=== PATIENT | female | born 1975 | race Caucasian/White ===

== ENCOUNTER 2020-08-20 15:29 | Emergency (ER) | payer OTHER, SELFPAY ==
[2020-08-20 15:59] VITALS: BP 155/90; PULSE 73; RESP 18; TEMP 36.4; O2SAT 100
--- NOTE | 2020-08-20 17:34 | PC.NURSE ---
Patient comes to intake desk and reports that she is going to leave the ED and does not wish to be seen in the ED at this time. Patient left the ED at this time.
== END 2020-08-20 15:59 | disposition left against medical advice (07) ==
PROVIDERS: PCP Internal Medicine Gastroenterology
DX: Z53.21 Procedure and treatment not carried out due to patient leaving prior to being seen by health care provider (principal)
CPT/HCPCS: 99199

== ENCOUNTER 2022-09-02 18:45 | Emergency (ER) | payer OTHER, SELFPAY ==
[2022-09-02 18:53] VITALS: BP 145/68; PULSE 100; RESP 16; TEMP 36.4; O2SAT 100
--- NOTE | 2022-09-02 19:20 | ED.URI ---
HPI - URI/Sore Throat General Chief Complaint: Upper Respiratory Infection Stated Complaint: cold sx Source: patient and RN notes reviewed History of Present Illness HPI Narrative: 47-year-old female presents to urgent care with complaints congestion, sore throat, popping in her left ear, and cough. Patient states her cough is worse at nighttime. Patient states the symptoms have been going on for 2 weeks and getting worse. Denies any fevers, chills, vomiting, chest pain, shortness of breath. Patient has been taking [id number] cold and flu medications with minimal relief. Some parts of this dictation were generated by voice recognition software and may contain typographical and/or grammatical inaccuracies. Related Data Home Medications Medication Instructions Recorded Confirmed baclofen 10 mg tablet mg 09/02/22 hydrocodone 10 mg-acetaminophen tablet 09/02/22 325 mg tablet naproxen 500 mg tablet mg 09/02/22 Allergies Allergy/AdvReac Type Severity Reaction Status Date / Time No Known Allergies Allergy Unknown Verified 09/02/22 18:50 Review of Systems Review of Systems: CONSTITUTIONAL: Denies fever, chills, or sweats. EYES: Denies visual changes, redness, or discharge. ENT: Reports popping in her left ear, congestion, and sore throat CARDIOVASCULAR: Denies chest pain, palpitations, or edema. RESPIRATORY: reports cough. GASTROINTESTINAL: Denies abdominal pain, nausea, vomiting, or diarrhea. GENITOURINARY: Denies dysuria or hematuria. SKIN: Denies rash or itching. MUSCULOSKELETAL: Denies back pain, joint pain, or myalgia. NEUROLOGIC: Denies headache, numbness, or weakness. PMFSH Social History Social History Gender identity (if verbalized by the patient): Female Comments At the time of my signature, I reviewed and agree with the nursing past medical, surgical, social, and family history. There is no relevant family history pertinent to the patient complaint. Exam Narrative: GENERAL: This is a well-nourished, well-developed patient, in no apparent distress. HEAD: normocephalic, atraumatic. EYES: PERRL. Sclera clear/white. Vision is grossly intact. EARS: External ears normal, auditory canals clear and without drainage, TMs normal without perforation. Hearing grossly intact. NOSE: congestion. Edematous nares bilaterally. THROAT: Mucous membranes moist, posterior pharynx Erythemic. no exudate noted. NECK: Neck supple, non-tender. Mild lymphadenopathy. CARDIOVASCULAR: Regular rate and rhythm without murmurs, gallops, or rubs. RESPIRATORY: Clear to auscultation. Breath sounds equal bilaterally. No wheezes, rales, or rhonchi. GASTROINTESTINAL: Abdomen soft, non-tender, nondistended. Bowel sounds are active. No hepato-splenomegaly, or palpable masses. No guarding. SKIN: warm, intact with no suspicious lesions or rash, good texture and turgor. NEURO: awake, alert, and oriented to person, place and time. There were no obvious focal neurologic abnormalities. Course Course Level of Care: Express Care Visit Vital Signs Vital signs: Vital Signs Temperature 97.5 F L 09/02/22 18:53 Pulse Rate 100 09/02/22 18:53 Respiratory Rate 16 09/02/22 18:53 Blood Pressure 145/68 H 09/02/22 18:53 Pulse Oximetry 100 09/02/22 18:53 Oxygen Delivery Room Air 09/02/22 18:53 Temperature 97.5 F L 09/02/22 18:53 Pulse Rate 100 09/02/22 18:53 Respiratory Rate 16 09/02/22 18:53 Blood Pressure 145/68 H 09/02/22 18:53 Pulse Oximetry 100 09/02/22 18:53 Oxygen Delivery Room Air 09/02/22 18:53 reviewed MDM - URI/Sore Throat MDM Narrative Medical decision making narrative: Return to urgent care or go to the ER for new or worsening symptoms. Avoid smoking/second-hand smoke. Continue to take Tylenol or Motrin for pain. Increase your Vitamin C intake. Use a humidifier or vaporizer at night. Take Medications as prescribed. Drink plenty of water. 8-10 glasses per day.
== END 2022-09-02 19:25 | disposition home or self-care (01) ==
PROVIDERS: Emergency Provider Nurse Practitioner Family; PCP Internal Medicine Gastroenterology
DX: J40 Bronchitis, not specified as acute or chronic (principal); J32.9 Chronic sinusitis, unspecified; J02.9 Acute pharyngitis, unspecified
CPT/HCPCS: 87081; 87880; 99213; G0463

== ENCOUNTER 2023-08-31 18:45 | Emergency (ER) | payer OTHER, SELFPAY ==
--- NOTE | ~2023-08-31 | XR_ITS ---
EXAMINATION: [id number] DATE: 08/31/2023 19:03 INDICATION: Right knee pain. TECHNIQUE: 2 views of right knee were obtained. COMPARISON: None. FINDINGS: Bone alignment is normal. No fracture. There is mild tricompartmental osteoarthritis. There is a moderate-sized knee joint effusion. IMPRESSION: 1. Mild right knee osteoarthritis. 2. Moderate-sized knee joint effusion. Reviewed, dictated and finalized at location [facility]
--- NOTE | 2023-08-31 18:51 | PC.NURSE ---
Pt requesting an MRI. Informed pt ER provider will assess pt. MRI are not typically ordred in ER due to insurances. Pt states has an appointment with ortho on 09/06/23
[2023-08-31 18:55] VITALS: BP 126/90; PULSE 84; RESP 18; TEMP 36.1; O2SAT 97
[2023-08-31] MEDS: traMADol HCL (*CRX) 50 MG TABLET PO (22:24)
[2023-08-31] MEDS: methylPREDNISolone SOD SUCC 125 MG VIAL IM (22:25)
[2023-08-31] MEDS: KETOROLAC (*BKC) 60 MG/2 ML VIAL IM (22:25)
--- NOTE | 2023-08-31 22:32 | ED.LOWEXIN ---
HPI - Extremity Injury (Lower) General Chief Complaint: Extremity Injury, Lower Stated Complaint: right knee pain Time Seen by Provider: 08/31/23 21:11 Source: patient Mode of arrival: ambulatory Limitations: no limitations History of Present Illness HPI Narrative: patient is a 48-year-old female who presents the ED with report of right knee pain. Patient reports chronic pain in bilateral knees, for which she receives steroid injections every 3 months with an outpatient sales operations specialist. She states a few days ago she was getting out of her car when her right knee popped and twisted. She has had worsening pain and mild swelling since then. She is able to ambulate, but has pain with this. She has been taking Tylenol and ibuprofen with minimal relief. Denies calf pain or swelling, numbness, redness or warmth around the knee, fevers. Related Data Home Medications Medication Instructions Recorded Confirmed baclofen 10 mg tablet mg 09/02/22 hydrocodone 10 mg-acetaminophen tablet 09/02/22 325 mg tablet naproxen 500 mg tablet mg 09/02/22 Allergies Allergy/AdvReac Type Severity Reaction Status Date / Time No Known Allergies Allergy Unknown Verified 08/31/23 18:46 Review of Systems Review of Systems: CONSTITUTIONAL: Denies fever, chills, or sweats. MUSCULOSKELETAL: See HPI NEUROLOGIC: Denies numbness, or weakness. All systems reviewed & are unremarkable except as noted in HPI and below PMFSH Social History Social History Gender identity (if verbalized by the patient): Female Exam Narrative: GENERAL: Well appearing, Obese with BMI of 37.8, non-toxic, in mild acute distress due to pain. HEAD: Normocephalic, atraumatic. RESPIRATORY: Airway patent, respirations nonlabored. CARDIOVASCULAR: Regular rate and rhythm. Pedal pulses 2+. MUSCULOSKELETAL: Moves all extremities. No gross deformities. limited range of motion of right knee flexion and extension due to pain. Tenderness to palpation diffusely throughout right knee joint spaces. Mild swelling noted to anterior knee. No warmth or erythema. Sensation intact. No lower extremity pain or swelling. No calf tenderness. SKIN: Warm, dry, normal color. NEURO: A&O X3. Speech clear. Cranial nerves II-XII grossly intact. No ataxic movements. PSYCHIATRIC: Appropriate mood and affect. Normal interaction. Course Vital Signs Vital signs: Vital Signs Temperature 97.0 F L 08/31/23 18:55 Pulse Rate 84 08/31/23 18:55 Respiratory Rate 18 08/31/23 18:55 Blood Pressure 126/90 08/31/23 18:55 Pulse Oximetry 97 08/31/23 18:55 Oxygen Delivery Room Air 08/31/23 18:55 Temperature 97.0 F L 08/31/23 18:55 Pulse Rate 84 08/31/23 18:55 Respiratory Rate 18 08/31/23 18:55 Blood Pressure 126/90 08/31/23 18:55 Pulse Oximetry 97 08/31/23 18:55 Oxygen Delivery Room Air 08/31/23 18:55 MDM - Extremity Injury (Lower) MDM Narrative Medical decision making narrative: Patient presents to ED with several day history of right knee pain, after pops/twisting from getting out of car several days ago. Patient's injury is consistent with musculoskeletal etiology. No signs of neurologic or vascular compromise on physical examination. Compartments are soft without signs of compartment syndrome. XR showing moderate size right knee joint effusion, no osseous abnormality, does show osteoarthritis, which patient was aware of. Pain is consistent with exam and injury. Discussed possibility of ligamentous or meniscal injury. Discussed rice therapy, will prescribe steroid pack, a few pain pills, place patient in a knee immobilizer, given crutches. She has a follow-up appointment with her sales operations specialist on . Patient is felt to be stable for discharge home and further outpatient management and treatment. Given return precautions. In agreement with plan. D/C in stable co
== END 2023-08-31 22:50 | disposition home or self-care (01) ==
PROVIDERS: Emergency Provider Physician Assistant; PCP Internal Medicine Gastroenterology
DX: M25.461 Effusion, right knee (principal); M25.561 Pain in right knee; M17.11 Unilateral primary osteoarthritis, right knee
CPT/HCPCS: 73560; 96372; 99284; A9270; J1885; J2930

== ENCOUNTER 2023-12-19 01:48 | Day surgery (SDC) | payer OTHER, SELFPAY ==
[2023-12-10 10:42] VITALS: BMI 36.1
--- NOTE | 2023-12-10 10:44 | PC.NURSE ---
Report to the Outpatient Waiting Room, entrance under the green pavilion located off [facility], at time _0830_ on date _[id number]_. Planned Procedure Time: _1030_. Time changes happen often and if your time is changed the preop area will call you the afternoon before. - You and your visitor will be asked to self-screen and do not enter if you have any COVID symptoms. - A mask is optional within the hospital at this time. Patients may have clear liquids (water, carbonated beverages, clear teas, apple juice) until 3 hours prior to surgery with a maximum of 20 ounces. - No food from midnight until time of surgery Take the following medications with a SIP of water the morning of surgery: ____Hydrocodone if needed. DO NOT STOP ANY OF YOUR OTHER PRESCRIPTION MEDICATIONS PRIOR TO SURGERY ?EXCEPT THE FOLLOWING Medications to discontinue per physician ___Tanvi says 's office did not tell her to stop naproxen. Date to take last dose Please no make-up, nail amharic, hairspray, perfume, deodorant, or body powder the day of surgery. No jewelry (including any body piercings) or valuables the day of surgery, leave them at home. Please take a shower or bath the night before, or the morning of, surgery with an antibacterial soap. Wear comfortable, loose fitting clothing. - Jewelry must be removed prior to entering the operating room. Rings and piercings that are not removed may be cut off. - The hospital will not accept responsibility for valuables. - Please leave all valuables, including medications, at home the day of surgery. If you are going home after surgery, a licensed driver license reviewing officer must drive you home. - NO public transportation without another adult if you receive anesthesia. - We recommend that an adult stay with you for 24 hours following discharge. - We also recommend that you do not drive, make important decision, drink alcoholic beverages, or take any drugs that were not prescribed by your health care provider for at least 24 hours after your discharge time. Follow any additional instructions given to you from your surgeon. If you or anyone in your household have experienced Covid symptoms in the past week, please notify your surgeon or the nurse liaison at the phone number below for possible testing. Telephone instructions given to __Angie___and asked if any additional questions and then verbalized understanding. Patient advised to call surgeon office or pre surgery nurse liaison [phone] if any additional questions.
[2023-12-19] VITALS (10 sets, daily range): BP systolic 114–165; BP diastolic 69–97; PULSE 60–80; RESP 9–20; TEMP 36.2–36.3; O2SAT 95–100
[2023-12-19] MEDS: LACTATED RINGERS 1,000 ML 30 ML IV CONT (06:30)
--- NOTE | 2023-12-19 06:40 | P.PNAN_ITS ---
Anes - Initial Pre Proc Eval Procedure: Operation Date: 12/19/23 07:30 Proposed Procedures p Right Knee Arthroscopy, Meniscal Repair, Proceed As Indicated - Red Peralta MD Date/Time: 12/19/23 06:40 Surgeon: Red Peralta MD Pre Op Diagnosis: Right Knee Meniscal Tear Patient Data Age: 48 Gender: F Height: 1.65 m Weight: 98.6 kg Allergies Allergy/AdvReac Type Severity Reaction Status Date / Time No Known Allergies Allergy Unknown Verified 12/10/23 10:34 Home Medications Medication Instructions Recorded Confirmed Type baclofen 10 mg tablet 10 mg PO BID PRN Pain 09/02/22 12/10/23 History hydrocodone 10 mg-acetaminophen 1 tablet PO QID PRN Pain 09/02/22 12/10/23 History 325 mg tablet naproxen 500 mg tablet 500 mg PO BID PRN Pain 09/02/22 12/10/23 History Patient hx anesthesia problems: none Family hx anesthesia problems: none Results Review: All pre-operative results and documents have been reviewed as part of the pre- operative evaluation. [facility] Past Medical History Medical History (Updated 12/19/23 @ 06:40 by Mauricio Nielson MD) Arthritis of knee both knees Obesity Surgical History Surgical History History of carpal tunnel surgery right History of rotator cuff surgery bilateral 2005, 2008 Family History Family History Father Heart disease Diabetes mellitus COPD (chronic obstructive pulmonary disease) Mother Cancer Social History Social History Smoking packs per day: 0.5 Smoking cigarettes per day: 10.0 Years smoked: 20 Smoking pack-years: 10.00 Smoking status: Current every day smoker Tobacco type: cigarettes Alcohol intake: never Substance use type: does not use Do You Feel Safe in your Home?: Yes Lack of Transportation: No Lack of Food: Never True Current Housing: I Have Housing Concerned About Future Housing: No Difficulty Paying Gas/Electric Bills: No Difficulty Paying for Meds: No Currently Unemployed: No Education: High School Diploma/GED Difficulty w/ Childcare or Family Care: No Living arrangements: with family Occupation/Education: occupation 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 Gender identity (if verbalized by the patient): Female Spiritual care concerns: No Anes - Eval Final PreProcedure Day of Procedure 12/19/23 06:40 Patient weight: obese Heart: regular rate and rhythm Lungs: clear to auscultation Airway: Mallampati scale class II and special considerations poor dentition (dental disease) Neurological: alert and oriented Last oral intake: >/= 8 hours ASA classification: III Emergent: no Anesthetic plan: proceed Anesthesia type and monitoring: general LMA and standard monitoring Results Review: All pre-operative results and documents have been reviewed as part of the pre- operative evaluation. Informed Consent: The patient's anesthetic plan and its attendant risks including tooth loss due to her poor dental condition and benefits were discussed with the patient/family/POA. Questions were solicited and answers provided to the satisfaction of the patient/family/POA.
--- NOTE | 2023-12-19 06:51 | PM.IMHP ---
H&P: HPI History of Present Illness Date/Time: 12/19/23 06:51 Chief Complaint: Patient presents with knee pain right. She has mechanical catching and locking of the right knee. She has an MRI scan that demonstrates a meniscal tear. Review of Systems Musculoskeletal: Musculoskeletal: Reports arthralgias, Reports joint swelling and Reports stiffness [facility] Past Medical History Medical History (Updated 12/19/23 @ 06:40 by Mauricio Nielson MD) Arthritis of knee both knees Obesity Surgical History Surgical History History of carpal tunnel surgery right History of rotator cuff surgery bilateral 2005, 2008 Family History Family History Father Heart disease Diabetes mellitus COPD (chronic obstructive pulmonary disease) Mother Cancer Social History Social History Smoking packs per day: 0.5 Smoking cigarettes per day: 10.0 Years smoked: 20 Smoking pack-years: 10.00 Smoking status: Current every day smoker Tobacco type: cigarettes Alcohol intake: never Substance use type: does not use Do You Feel Safe in your Home?: Yes Lack of Transportation: No Lack of Food: Never True Current Housing: I Have Housing Concerned About Future Housing: No Difficulty Paying Gas/Electric Bills: No Difficulty Paying for Meds: No Currently Unemployed: No Education: High School Diploma/GED Difficulty w/ Childcare or Family Care: No Living arrangements: with family Occupation/Education: occupation Additional occupation/education comments: delivery associate Gender identity (if verbalized by the patient): Female Spiritual care concerns: No Meds Home Medications and Allergies Home Medications Medication Instructions Recorded Confirmed Type baclofen 10 mg tablet 10 mg PO BID PRN Pain 09/02/22 12/10/23 History hydrocodone 10 mg-acetaminophen 1 tablet PO QID PRN Pain 09/02/22 12/10/23 History 325 mg tablet naproxen 500 mg tablet 500 mg PO BID PRN Pain 09/02/22 12/10/23 History Allergies Allergy/AdvReac Type Severity Reaction Status Date / Time No Known Allergies Allergy Unknown Verified 12/10/23 10:34 Exam Narrative: On exam she is tender medially on the right knee. She has a positive Mata's and tenderness along the joint line. She has mechanical catching and locking of her knee. Neurologically she is intact. She walks with a limp. Eyes: General: appearance normal, both eyes and all related structures Neck: Neck: supple Resp: Effort & Inspection: normal respiratory effort Cardio: Rate: regular rate Assessment and Plan Assessment and plan (1) Acute medial meniscus tear of right knee: Code(s): S83.241A - Other tear of medial meniscus, current injury, right knee, initial encounter Status: Acute Assessment and Plan: Patient has meniscal tear right. She does have mechanical catching and locking and pain with manipulation. She has failed conservative treatment. She does have some degenerative change of her knee as well but the mechanical symptoms are causing the acute pain and catching she has. I have discussed treatment options with her in detail risks benefits limitations and alternatives. She would like to proceed with knee arthroscopy right. Will proceed per her request.
--- NOTE | 2023-12-19 06:55 | WPDHPUPDATE1 ---
History and Physical Update Update Date/Time: 12/19/23 06:55 History and Physical has been reviewed, including an updated exam of the patient. There are NO changes in the patient's condition. Risks, benefits, and alternatives have been discussed and questions answered. Patient agrees to proceed with procedure.
[2023-12-19] MEDS: KETOROLAC 15 MG/ML VIAL (*BKC) IV PUSH (07:13)
[2023-12-19] MEDS: ACETAMINOPHEN 500 MG TABLET 1000 MG PO (07:13)
[2023-12-19] MEDS: ceFAZolin 2 GM/D5W 50 ML 2 GM/50 ML BAG IVPB (07:21)
[2023-12-19] MEDS: LIDO 1%/EPINEPHRINE 1:100,000 50 ML VIAL 30 ML INFILTRATE (07:58)
--- NOTE | 2023-12-19 08:05 | W.PM.PROC2 ---
Procedure Note - Detailed Date of Procedure 12/19/23 Pre-op Diagnosis Right Knee Medial Meniscal Tear Post-op Diagnosis Same Procedure Performed RIGHT knee arthroscopy with partial menisecetomy Surgeon Red Peralta MD Anesthesia General Description of Procedure Patient brought to operating room # 7. An anesthetic was administered. The knee was sterilely prepped and draped in the usual manner. Standard portals were used. Superior medial portal was used for the outflow cannula, inferior lateral portal was used for the scope, inferior medial portal was used for the instruments. Arthroscopy was performed, the patellar femoral joint degenerative changes. The medial compartment showed a complex tear posteriorly. The lateral compartment showed fraying. The ACL was intact. Using baskets and boston the meniscal tear was trimmed back to a stable base so the nothing further could be pulled into the joint. Any loose or delaminated fragments were gently trimmed to a stable base. The plica was debrided as well. At this point the instruments were withdrawn, sutures placed and patient left the operating room in satisfactory condition. Estimated Blood Loss 20 Drains No Packing No Pathology None sent Complications No immediate complications Condition Stable Disposition PACU [facility] Billing Surgery - Charge Forward: Surgery Billing ([id number] Arthroscopy, Partial Menisesctomy)
[2023-12-19] MEDS: fentaNYL CITRATE INJ (*CRX) 100 MCG/2 ML VIAL 25 MCG IV PUSH ×3 (08:52→09:03)
[2023-12-19] MEDS: oxyCODONE HCL (*CRX) 5 MG TAB IR PO (09:30)
== END 2023-12-19 10:15 | disposition home or self-care (01) ==
PROVIDERS: PCP Internal Medicine Gastroenterology; Visit Provider Orthopaedic Surgery
PROC: (CPT 29870; principal; 2023-12-19 07:30)
DX: S83.231A Complex tear of medial meniscus, current injury, right knee, initial encounter (principal); X50.0XXA Overexertion from strenuous movement or load, initial encounter; F17.210 Nicotine dependence, cigarettes, uncomplicated; E66.9 Obesity, unspecified; Z68.37 Body mass index [BMI] 37.0-37.9, adult
CPT/HCPCS: 29881; A9270; J0690; J1100; J1885; J2250; J2405; J2704; J3010; J7120

== ENCOUNTER 2025-04-26 17:56 | Emergency (ER) | payer OTHER, SELFPAY ==
[2025-04-26 18:10] VITALS: BP 154/77; PULSE 69; RESP 20; TEMP 36.7; O2SAT 100
--- NOTE | 2025-04-26 18:18 | ED_ITS ---
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 noted she was stopping at home in their dogs outside 1 of them jumped on her and knows to her face in the other 1 bit her in the back of the leg. Patient reports she is unsure when her last tetanus vaccination was in would like to get this updated. Patient attempted to get information about the dogs is unsure of their vaccinations status. Reports pain and swelling to the area but denies numbness or tingling. Related Data Home Medications ?Medication ?Instructions ?Recorded ?Confirmed ?Last Taken ?Type baclofen 10 mg tablet 10 mg PO BID PRN Pain 05/15/24 Unknown History hydrocodone 10 mg-acetaminophen 1 tablet PO QID PRN Pa in 09/02/22 05/15/24 Unknown History 325 mg tablet naproxen 500 mg tablet 500 mg PO BID PRN Pain 09/0205/15/24 Unknown History Allergies Allergy/AdvReac Type Severity Reaction Status Date / Time No Known Allergies Allergy Unknown Verified 04/26/25 18:26 Review of Systems 2 Constitutional: Constitutional: Reports as per HPI, Denies chills, Denies fatigue, Denies fever(s) and Denies weakness Eyes: Eyes: Reports no additional eye complaints Cardiovascular: Cardiovascular: Reports no additional cardiovascular complaints Respiratory: Respiratory: Reports no additional respiratory complaints Gastrointestinal: Gastrointestinal: Reports no additional gastrointestinal complaints Genitourinary: Genitourinary: Reports no additional female genitourinary complaints Musculoskeletal: Musculoskeletal: Reports as per HPI, Denies arthralgias, Denies joint swelling and Denies muscle cramps Integumentary/Breasts: Skin/Breast: Reports as per HPI, Denies erythema, Denies rash and Denies skin ulcer Comments: Bruising, swelling, mild redness, and puncture wounds to back of left leg Neurologic: Reports as per HPI, Denies numbness and Denies weakness Psychiatric: Psychiatric: Reports no additional psychiatric complaints Endocrine: Endocrine: Reports no additional endocrine complaints Hematologic/Lymphatic: Hematologic/Lymphatic: Reports no additional hematologic/lymphatic complaints Allergic/Immunologic: Allergic/Immunologic: Reports no additional allergic/immunologic complaints [facility] Past Medical History Medical History Arthritis of knee both knees Obesity Surgical History Surgical History History of arthroscopic knee surgery History of carpal tunnel surgery right History of rotator cuff surgery bilateral 2005, 2008 Family History Family History Father Heart disease Diabetes mellitus COPD (chronic obstructive pulmonary disease) Mother Cancer Social History Social History (Updated 05/15/24 @ 10:55 by Kathleen Kline CMA) Smoking packs per day: 0.5 Smoking cigarettes per day: 10.0 Years smoked: 20 Smoking pack-years: 10.00 Smoking status: Current every day smoker Tobacco type: cigarettes Alcohol intake: never Substance use type: does not use Do You Feel Safe in your Home?: Yes Lack of Transportation: No Lack of Food: Never True Current Housing: I Have Housing Concerned About Future Housing: No Difficulty Paying Gas/Electric Bills: No Difficulty Paying for Meds: No Currently Unemployed: YES Education: High School Diploma/GED Difficulty w/ Childcare or Family Care: No Living arrangements: with family Occupation/Education: occupation 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 minimal surrounding erythema noted to the area with mild tenderness. No active bleeding, drainage or crusting. Neuro: General: patient oriented x3 and moves all extremities Speech: n ormal speech Gait exam (Neuro): Normal gait present Extrem: Knee images: 1. several punctures noted to area with ecchymosis, erythema, and edema. Psych: Mental Status: mental status grossly normal Affect: normal affect Attitude: cooperative Course Course Level of Care: Express Care Visit Vital Signs Vital signs: Vital Signs Temperature 98.0 F 04/26/25 18:10 Pulse Rate 69 04/26/25 18:10 Respiratory Rate 20 04/26/25 18:10 Blood Pressure 154/77 H 04/26/25 18:10 Pulse Oximetry 100 04/26/25 18:10 Oxygen Delivery Room Air 04/26/25 18:10 Temperature 98.0 F 04/26/25 18:10 Pulse Rate 69 04/26/25 18:10 Respiratory Rate 20 04/26/25 18:10 Blood Pressure 154/77 H 04/26/25 18:10 Pulse Oximetry 100 04/26/25 18:10 Oxygen Delivery Room Air 04/26/25 18:10 MDM - Animal Bite MDM Narrative Medical decision making narrative: Area irrigated and cleaned by ER and in dressing placed. Educated patient on wound care practices dogs were home pets and likely vaccinated against rabies highly unlikely that she would need any treatment with this will update patient's tetanus and place her on prophylactic antibiotics. The patient was evaluated by myself in the [facility] care. History is obtained from patient who is an independent historian and physical exam was performed. Available medical records were reviewed at this time. Exam findings show no acute concerns or changes; patient is non-toxic appearing and is in no distress. Patient is appropriate for outpatient treatment and follow-up. I have evaluated and discussed social determinants of health with the patient that could potentially impact subsequent diagnosis and treatment plans. Differential diagnosis and treatment plan were discussed with the patient. Patient agrees with discussion and after shared medical decision making agrees with plan of care. All questions were answered to the patient's satisfaction. Differential Diagnosis Differential diagnosis: Likely bite by animal, cat bite, dog bite and rabies contact Medical Records Attestation: I reviewed the patient's medical records. Discharge Plan Discharge Clinical Impression: Open bite, left thigh, initial encounter, Dog bite Patient Disposition: Home Condition: Stable Instructions: Antibiotic Form, Animal Bite (ED), Acute Wounds (ED) Additional Instructions: You have been bit by an animal and this has broken the skin given the high rate of infection we do put people on antibiotics to ensure they do not get infection. Augmentin is the antibiotic of choice at this time. This will be taken twice daily for 10 days. Ensure to eat with this medication. Also recommended to take probiotic or daily yogurt when taking any antibiotics. Ensure to wash this area once daily with gentle soap and warm water then apply Aquaphor/Neosporin/ bacitracin/ Vaseline to the area and cover if needed. Watch for signs of worsening infection including increased redness, pain, color drainage, fever, chills, body aches. We have updated your tetanus vaccination today. This is good for 10 years. Follow-up with primary care physician if symptoms worsening. Patient Language: [place] Prescriptions: New amoxicillin-pot clavulanate 875-125 mg tablet 1 tablet PO Q12H Qty: 20 0RF No Action hydrocodone-acetaminophen 10-325 mg tablet 1 tablet PO QID PRN (Reason: Pain) baclofen 10 mg tablet 10 mg PO BID PRN (Reason: Pain) naproxen 500 mg tablet 500 mg PO BID PRN (Reason: Pain) Follow-up/Referrals: UNKNOWN,DOCTOR [Primary Care Provider] Time of Disposition: 18:27
[2025-04-26] MEDS: TETANUS,DIPHTHERIA,AC PERTUSSIS ADULT (0.5 ML) BOOSTRIX IM (18:22)
== END 2025-04-26 18:32 | disposition home or self-care (01) ==
PROVIDERS: Emergency Provider Nurse Practitioner Family
DX: S71.152A Open bite, left thigh, initial encounter (principal); W54.0XXA Bitten by dog, initial encounter; Z23 Encounter for immunization; F17.210 Nicotine dependence, cigarettes, uncomplicated; M17.0 Bilateral primary osteoarthritis of knee; E66.9 Obesity, unspecified; Z68.36 Body mass index [BMI] 36.0-36.9, adult
CPT/HCPCS: 90471; 90715; 99213; G0463